=== PATIENT | male | born 1980 | race Caucasian/White ===

== ENCOUNTER 2016-10-06 23:35 | Emergency (ER) | payer MEDICAID ==
[2016-10-06 23:44] VITALS: BP 113/72; PULSE 83; TEMP 98.1; O2SAT 99
[2016-10-07] MEDS ORDERED: Tetanus/Diphtheria Toxoids 0.5 ml Syringe IM ONE ×2 (00:17→00:41)
--- NOTE | 2016-10-07 00:22 | C.PDOC ---
History Of Present Illness Patient is a 35 year old male who presents to the ER after being biten by cousins dog on the right forearm/hand [place]. Patient denies active bleeding or other injury. Time Seen by Provider: 10/06/16 23:48 Chief Complaint (Nursing): Bite History Per: Patient History/Exam Limitations: no limitations Onset/Duration Of Symptoms: Hrs Current Symptoms Are (Timing): Still Present Location Of Injury: Right: Forearm, Hand Recent travel outside of the [place]: No - Animal Bite Description Of The Attack: Unprovoked Attack Description Of The Animal: Family Pet (Cousins dog) Reports Animal Appears: Unknown Reports Animal's Immunization Status: Unknown Past Medical History Reviewed: Historical Data, Nursing Documentation, Vital Signs Vital Signs: Last Vital Signs Temp 98.1 F 10/06/16 23:42 Pulse 83 10/06/16 23:42 Resp 20 10/07/16 00:55 BP 113/72 10/06/16 23:42 Pulse Ox 99 10/07/16 03:16 - Medical History PMH: No Chronic Diseases Surgical History: No Surg Hx Family History: States: Unknown Family Hx - Social History Hx Alcohol Use: Yes Hx Substance Use: No - Immunization History Hx Tetanus Toxoid Vaccination: No Hx Influenza Vaccination: No Hx Pneumococcal Vaccination: No Review Of Systems Musculoskeletal: Positive for: Arm Pain (Right forearm), Hand Pain (Right) Physical Exam - Physical Exam Appears: Non-toxic, No Acute Distress Skin: Normal Color, Warm, Dry Head: Atraumatic, Normacephalic Oral Mucosa: Moist Extremity: Other (Superfical abrasions to the dorsal aspect of right distal forearm and dorsal right hand, volar aspect of right distal forearm. No active bleeding or laceration.) Pulses: Left Radial: Normal, Right Radial: Normal Neurological/Psych: Oriented x3, Normal Speech, Normal Cognition ED Course And Treatment O2 Sat by Pulse Oximetry: 99 (Room air) Pulse Ox Interpretation: Normal Progress Note: Tetanus vaccine administered. Disposition Counseled Patient/Family Regarding: Diagnosis, Need For Followup, Rx Given - Disposition Disposition: HOME/ ROUTINE Disposition Time: 00:18 Condition: STABLE Additional Instructions: Please follow up with PMD Keep wound clean and dry Apply ICE and bacitracin oint to area Take meds as directed Return to ER if worse Prescriptions: Amoxicillin/Clavulanate [Augmentin 875 MG-125 MG] 1 tab PO BID #10 tab Bacitracin Ointment [Bacitracin] 30 gm TOP BID #1 tube Instructions: Animal Bite (ED) - Clinical Impression Clinical Impression: Dog bite of extremity - Scribe Statement The provider has reviewed the documentation as recorded by the Scribtana Mukherjee All medical record entries made by the Johanneibe were at my direction and personally dictated by me. I have reviewed the chart and agree that the record accurately reflects my personal performance of the history, physical exam, medical decision making, and the department course for this patient. I have also personally directed, reviewed, and agree with the discharge instructions and disposition.
[2016-10-07 00:56] VITALS: RESP 20
== END 2016-10-07 00:55 | disposition home or self-care (01) ==
LOC: C.ER 23:35
DX: S50.811A Abrasion of right forearm, initial encounter (principal); S60.511A Abrasion of right hand, initial encounter; W54.0XXA Bitten by dog, initial encounter